=== PATIENT | male | born 1985 | race Caucasian/White ===

== ENCOUNTER 2017-07-25 11:51 | Emergency (ER) | payer SELFPAY ==
[~2017-07-25] VITALS: Ht 188 cm; Wt 94.8 kg
== END 2017-07-25 12:08 | disposition home or self-care (01) ==
LOC: ED 11:51
DX: S61.213A Laceration without foreign body of left middle finger without damage to nail, initial encounter (principal); W45.8XXA Other foreign body or object entering through skin, initial encounter